=== PATIENT | female | born 1990 | race Caucasian/White ===

== ENCOUNTER 2016-03-30 01:11 | Emergency (ER) | payer OTHER ==
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
--- NOTE | 2016-03-30 05:53 | ED ORDER SUMMARY ---
..... Patient: JOSEPH LOWERY OrderSheet [facility] VisitID: [id number] [place] [address] 25y, F Registration Date/Time: 03/30/2016 ORDER SHEET Weight: 65.7 kg (stated) Allergies: No Known Drug Allergy GENERAL ORDERS: Chest 2V Urgent (01:46 03/30/2016 Shamar BAIG) (Ack 1:54 LMuller) (2:04 Janessa) Urine Urgent (:47 03/30/2016 Shamar BAIG) (Ack 1:54 LMuller) (Cancelled: Patient Refusal1:56 HSoule) Urine Drug Screen Urgent (:47 03/30/2016 Shamar BAIG) (Ack 1:54 LMuller) (Cancelled: Patient Refusal1:56 HSoule) UA-Culture if indicated Urgent (01:47 03/30/2016 Shamar BAIG) (Ack 1:54 LMuller) (Collected 1:55 HSoule) (Cancelled: Patient Refusal1:56 HSoule) Breathalyzer (01:47 03/30/2016 Shamar BAIG) (Ack 1:51 HSoule) (Cancelled: Patient Refusal2:30 HSoule) Ethyl Alcohol Urgent (02:58 03/30/2016 Shamar BAIG) (3:00 LMuller) Lumbar Spine 2 or 3V Urgent (05:17 03/30/2016 Shamar BAIG) (Ack 5:19 LMuller) (5:39 LMuller) MEDICATION ORDERS: IV FLUIDS: ORDER SHEET NOTES: [Electronically signed by Joaquina Danielle (07:19 03/30/2016)] [Electronically signed by Willard Zaidi MD (12:14 04/01/2016)] [Electronically locked/signed by Joaquina Danielle (07:19 03/30/2016)]
--- NOTE | 2016-03-30 05:53 | ED ORDER SUMMARY ---
..... Patient: JOSEPH LOWERY OrderSheet [facility] VisitID: [id number] [place] [address] 25y, F Registration Date/Time: 03/30/2016 ORDER SHEET Weight: 65.7 kg (stated) Allergies: No Known Drug Allergy GENERAL ORDERS: Chest 2V Urgent (01:46 03/30/2016 Shamar BAIG) (Ack 1:54 LMuller) (2:04 Janessa) Urine Urgent (:47 03/30/2016 Shamar BAIG) (Ack 1:54 LMuller) (Cancelled: Patient Refusal1:56 HSoule) Urine Drug Screen Urgent (:47 03/30/2016 Shamar BAIG) (Ack 1:54 LMuller) (Cancelled: Patient Refusal1:56 HSoule) UA-Culture if indicated Urgent (01:47 03/30/2016 Shamar BAIG) (Ack 1:54 LMuller) (Collected 1:55 HSoule) (Cancelled: Patient Refusal1:56 HSoule) Breathalyzer (01:47 03/30/2016 Shamar BAIG) (Ack 1:51 HSoule) (Cancelled: Patient Refusal2:30 HSoule) Ethyl Alcohol Urgent (02:58 03/30/2016 Shamar BAIG) (3:00 LMuller) Lumbar Spine 2 or 3V Urgent (05:17 03/30/2016 Shamar BAIG) (Ack 5:19 LMuller) (5:39 LMuller) MEDICATION ORDERS: IV FLUIDS: ORDER SHEET NOTES: [Electronically signed by Joaquina Danielle (07:19 03/30/2016)] [Electronically signed by Willard Zaidi MD (12:14 04/01/2016)] [Electronically locked/signed by Joaquina Danielle (07:19 03/30/2016)]
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
--- NOTE | 2016-03-30 06:54 | DIAGNOSTIC IMAGING REPORT ---
PROCEDURE: XR CHEST 2 VIEW INDICATION: CHEST PAIN, initial encounter TECHNIQUE: PA and lateral view. COMPARISON: None. FINDINGS: Lungs are clear. Cardiovascular structures are normal. Bilateral nipple piercings. Minor dextroconvex scoliosis. IMPRESSION: 1. Negative chest.
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
--- NOTE | 2016-04-01 12:14 | ED MED RECONCILIATION SUMMARY ---
Patient: JOSEPH LOWERY Medication Reconciliation Report [facility] VisitID: [id number] [place] [address] 25y, F Registration Date/Time: 03/30/2016 Weight: 65.7 kg Height/Length: 68 in. BMI: 22.0 ALLERGIES: No Known Drug Allergy The patient's Home Medications are listed below: NONE. The source(s) of the original Home Medication information: patient The following Medications were given to the patient in the Emergency Department: None. The following Medications were prescribed to the patient: Motrin (available over the counter): take according to label instructions. -- Willard Zaidi MD Hydrocodone/APAP 5mg/325mg: take 1 to 2 orally every 6 hours as needed for pain. Dispense fifteen (15). No refills. -- Willard Zaidi MD Flexeril 5 mg: take 1 orally every 8 hours as needed for muscle spasm or pain. Dispense fifteen (15). No refills. Substitution is permissible. -- Willard Zaidi MD
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
--- NOTE | 2016-04-01 12:14 | ED MAR SUMMARY ---
..... Medication Administration Record [facility] [address] [place], [place] [id number] Patient: JOSEPH LOWERY Visit ID: [id number] 25y, F Weight: 65.7 kg Height/Length: 68 in BMI: 22 ALLERGIES: No Known Drug Allergy
--- NOTE | 2016-04-01 12:14 | ED MAR SUMMARY ---
..... Medication Administration Record [facility] [address] [place], [place] [id number] Patient: JOSEPH LOWERY Visit ID: [id number] 25y, F Weight: 65.7 kg Height/Length: 68 in BMI: 22 ALLERGIES: No Known Drug Allergy
--- NOTE | 2016-04-01 12:14 | ED MED RECONCILIATION SUMMARY ---
Patient: JOSEPH LOWERY Medication Reconciliation Report [facility] VisitID: [id number] [place] [address] 25y, F Registration Date/Time: 03/30/2016 Weight: 65.7 kg Height/Length: 68 in. BMI: 22.0 ALLERGIES: No Known Drug Allergy The patient's Home Medications are listed below: NONE. The source(s) of the original Home Medication information: patient The following Medications were given to the patient in the Emergency Department: None. The following Medications were prescribed to the patient: Motrin (available over the counter): take according to label instructions. -- Willard Zaidi MD Hydrocodone/APAP 5mg/325mg: take 1 to 2 orally every 6 hours as needed for pain. Dispense fifteen (15). No refills. -- Willard Zaidi MD Flexeril 5 mg: take 1 orally every 8 hours as needed for muscle spasm or pain. Dispense fifteen (15). No refills. Substitution is permissible. -- Willard Zaidi MD
== END 2016-03-30 06:00 | disposition home or self-care (01) ==
LOC: ED SRH 01:11
DX: S39.012A Strain of muscle, fascia and tendon of lower back, initial encounter (principal); S29.012A Strain of muscle and tendon of back wall of thorax, initial encounter; V47.1XXA Car passenger injured in collision with fixed or stationary object in nontraffic accident, initial encounter; Y93.89 Activity, other specified; Y92.410 Unspecified street and highway as the place of occurrence of the external cause; Y99.8 Other external cause status
CPT/HCPCS: 90074; 92010